=== PATIENT | male | born 1985 | race American Indian/Alaskan Native ===

== ENCOUNTER 2016-07-11 02:10 | Emergency (ER) | payer SELFPAY ==
[2016-07-11 02:23] VITALS: BP 124/88
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
== END 2016-07-11 09:24 | disposition home or self-care (01) ==
LOC: ED 02:10
DX: S09.90XA Unspecified injury of head, initial encounter (principal); F17.200 Nicotine dependence, unspecified, uncomplicated; Y08.89XA Assault by other specified means, initial encounter; Y93.9 Activity, unspecified; Y92.9 Unspecified place or not applicable; Y99.9 Unspecified external cause status
CPT/HCPCS: 70450; 99283